=== PATIENT | female | born 2000 | race Caucasian/White ===

== ENCOUNTER 2024-02-11 18:50 | Emergency (ER) | payer OTHER ==
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
[2024-02-11] MEDS: IBUPROFEN 600 MG TABLET PO STA (20:07)
[2024-02-11] MEDS: ACETAMINOPHEN 325 MG TABLET PO STA (20:08)
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
[2024-02-11 23:11] VITALS: BP 116/66; O2SAT 99
== END 2024-02-11 23:10 | disposition home or self-care (01) ==
LOC: ED 18:50
DX: S00.83XA Contusion of other part of head, initial encounter (principal); W50.0XXA Accidental hit or strike by another person, initial encounter; Y92.129 Unspecified place in nursing home as the place of occurrence of the external cause; Y99.0 Civilian activity done for income or pay
CPT/HCPCS: 1040M; 70110; 99283; A9270